=== PATIENT | male | born 2000 | race American Indian/Alaskan Native ===

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

== ENCOUNTER 2019-12-31 14:26 | Emergency (ER) | payer SELFPAY ==
[2019-12-31 15:09] VITALS: BP 114/60
[2019-12-31] MEDS ORDERED: IBUPROFEN 600 MG TAB PO ONE (15:13)
--- NOTE | 2019-12-31 15:13 | Emergency Department Report ---
ED Upper Extremity Inj HPI - General Chief Complaint: Fall Stated Complaint: LT WRIST PAIN Time Seen by Provider: 12/31/19 15:11 Source: patient Mode of arrival: Ambulatory Limitations: No Limitations - History of Present Illness Initial Comments: Patient is a 19-year-old male presents emergency room with complaints of left wrist pain that began yesterday. He states that he was skateboarding outside and fell to the ground and caught himself with his left arm. He states that he had a fall on outstretched hand. He states that the pain increased this morning when he woke up. He states he has sprained his wrist in the past but denies any fractures or surgeries. He denies any numbness or weakness. he denies hitting his head, LOC, vomiting, or any other injury. He states that he does have pain with movement. No past medical history. No allergies to medications. - Related Data Previous Rx's Medication Instructions Recorded Last Taken Type Chlorhexidine Mouthwash [Peridex] 15 ml MM BID #1 bottle 05/07/17 Unknown Rx traMADoL [Ultram] 50 mg PO Q6HR PRN #15 tablet 05/07/17 Unknown Rx Ibuprofen [Motrin 600 MG tab] 600 mg PO Q8H PRN #14 tablet 12/31/19 Unknown Rx Allergies Allergy/AdvReac Type Severity Reaction Status Date / Time No Known Allergies Allergy Verified 05/07/17 02:59 ED Review of Systems ROS: Stated complaint: LT WRIST PAIN Other details as noted in HPI Comment: All other systems reviewed and negative ED Past Medical Hx - Past Medical History Previous Medical History?: No - Surgical History Past Surgical History?: No - Social History Smoking Status: Never Smoker Substance Use Type: None - Medications Home Medications: Home Medications Medication Instructions Recorded Confirmed Last Taken Type Chlorhexidine Mouthwash [Peridex] 15 ml MM BID #1 bottle 05/07/17 Unknown Rx traMADoL [Ultram] 50 mg PO Q6HR PRN #15 tablet 05/07/17 Unknown Rx Ibuprofen [Motrin 600 MG tab] 600 mg PO Q8H PRN #14 tablet 12/31/19 Unknown Rx ED Physical Exam - General Limitations: No Limitations General appearance: alert, in no apparent distress - Head Head exam: Present: atraumatic, normocephalic - Eye Eye exam: Present: normal appearance - ENT ENT exam: Present: mucous membranes moist - Respiratory Respiratory exam: Absent: respiratory distress, accessory muscle use - Extremities Exam Extremities exam: Present: other (ttp to the middle and lateral distal wrist, no snuffbox ttp, no ttp to the left hand or digits, FROM of the left wrist, hand, digits, he has pain with flexion and extension of the left wrist, there is mild edema of the left wrist, neurovascularly intact) - Neurological Exam Neurological exam: Present: alert, oriented X3 - Psychiatric Psychiatric exam: Present: normal affect, normal mood - Skin Skin exam: Present: warm, dry, intact ED Course Vital Signs 12/31/19 15:07 Temperature 98.4 F Pulse Rate 68 Respiratory 20 Rate Blood Pressure 114/60 [Right] O2 Sat by Pulse 100 Oximetry ED Medical Decision Making - Radiology Data Radiology results: report reviewed, image reviewed Ordering Physician: BENIGNO NATH Date of Service: 12/31/19 Procedure(s): XR wrist 3+V LT Accession Number(s): [id number] cc: BENIGNO NATH Fluoro Time In Minutes: LEFT WRIST 3 VIEWS INDICATION / CLINICAL INFORMATION: Left wrist pain, status post fall on outstretched hand. COMPARISON: None available. FINDINGS: BONES and JOINT(S): No acute fracture or subluxation. No significant arthritis. SOFT TISSUES: No significant abnormality. ADDITIONAL FINDINGS: None. IMPRESSION: 1. No acute findings. Signer Name: Bill Salinas MD Signed: 12/31/2019 4:20 PM Workstation Name: [id number] Transcribed By: MN Dictated By: Bill Salinas MD Electronically Authenticated By: Bill Salinas MD Signed Date/Time: 12/31/191619 DD/ 18 TD/TT: - Medical Decision Making Patient is a 19-year-old male presents emergency room with complaints of left wrist pain that began yesterday. He states that he was skateboarding outside and fell to the ground and caught himself with his left arm. He states that he had a fall on outstretched hand. He states that the pain increased this morning when he woke up. He states he has sprained his wrist in the past but denies any fractures or surgeries. He denies any numbness or weakness. he denies hitting his head, LOC, vomiting, or any other injury. He states that he does cortez ve pain with movement. No past medical history. No allergies to medications. vitals are normal. on exam: ttp to the middle and lateral distal wrist, no snuffbox ttp, no ttp to the left hand or digits, FROM of the left wrist, hand, digits, he has pain with flexion and extension of the left wrist, there is mild edema of the left wrist, neurovascularly intact. XR left wrist: 1. No acute findings. Patient given ibuprofen while in the emergency department and symptoms improved. Patient placed in Velcro wrist splint by rn manager and remained neurovascular intact. Patient given prescription for ibuprofen. Advised patient to please take medication as prescribed as needed. May ice for 15 minutes at a time, rest, elevate the arm. Follow-up with orthopedic doctor for reexamination. Return to emergency room for any new or worsening symptoms. - Differential Diagnosis sprain, strain, fx, dislocation, contusion, tendinitis Critical care attestation.: If time is entered above; I have spent that time in minutes in the direct care of this critically ill patient, excluding procedure time. ED Disposition Clinical Impression: Left wrist sprain Qualifiers: Encounter type: initial encounter Qualified Code(s): S63.502A - Unspecified sprain of left wrist, initial encounter Disposition: TO HOME OR SELFCARE Is pt being admited?: No Does the pt Need Aspirin: No Condition: Stable Instructions: Wrist Sprain, Adult Additional Instructions: please take medication as prescribed as needed. May ice for 15 minutes at a time, rest, elevate the arm. Follow-up with orthopedic doctor for reexamination. Return to emergency room for any new or worsening symptoms. Prescriptions: Ibuprofen [Motrin 600 MG tab] 600 mg PO Q8H PRN #14 tablet PRN Reason: Pain Referrals: PRIMARY CAREMD [Primary Care Provider] - 2-3 Days MARY ROYAL MD [Staff Physician] - 2-3 Days [facility] [Provider Group] - 2-3 Days Time of Disposition: 16:34
--- NOTE | 2019-12-31 16:24 | XRay Report ---
LEFT WRIST 3 VIEWS INDICATION / CLINICAL INFORMATION: Left wrist pain, status post fall on outstretched hand. COMPARISON: None available. FINDINGS: BONES and JOINT(S): No acute fracture or subluxation. No significant arthritis. SOFT TISSUES: No significant abnormality. ADDITIONAL FINDINGS: None. IMPRESSION: 1. No acute findings. Signer Name: Bill Salinas MD Signed: 12/31/2019 4:20 PM Workstation Name: [id number]
== END 2019-12-31 16:50 | disposition home or self-care (01) ==
LOC: ED 14:26
DX: S63.502A Unspecified sprain of left wrist, initial encounter (principal); Z79.899 Other long term (current) drug therapy; V00.131A Fall from skateboard, initial encounter; Y92.410 Unspecified street and highway as the place of occurrence of the external cause; Y93.89 Activity, other specified; Y99.8 Other external cause status

== ENCOUNTER 2020-01-14 19:47 | Emergency (ER) | payer SELFPAY ==
[2020-01-14 20:15] VITALS: BP 115/68
--- NOTE | 2020-01-14 20:18 | Event Note ---
ED Screening Note ED Screening Note: Fall off a skateboard that occurred yesterday He landed on his right shoulder States that this morning when he woke up the pain was significantly worse He states he is unable to lift his right shoulder This initial assessment/diagnostic orders/clinical plan/treatment(s) is/are subject to change based on patients health status, clinical progression and re- assessment by fellow clinical providers in the ED. Further treatment and workup at subsequent clinical providers discretion. Patient/guardian urged not to elope from the ED as their condition may be serious if not clinically assessed and managed. Initial orders include: X-ray right shoulder
--- NOTE | 2020-01-14 20:50 | XRay Report ---
RIGHT SHOULDER 2 VIEWS INDICATION / CLINICAL INFORMATION: Right shoulder pain. COMPARISON: None available. FINDINGS: BONES / JOINT(S): The externally rotated view could not be performed due to pain. No significant arth ritis. There is no evidence of fracture, subluxation or destructive lesion. SOFT TISSUES: No significant abnormality. ADDITIONAL FINDINGS: The visualized right lung is clear. Signer Name: Antony Rivas MD Signed: 01/14/2020 8:46 PM Workstation Name: [id number]
[2020-01-15] MEDS ORDERED: IBUPROFEN 800 MG TAB PO ONE (00:31)
--- NOTE | 2020-01-15 00:38 | Emergency Department Report ---
ED Extremity Problem HPI - General Chief complaint: Extremity Injury, Upper Stated complaint: RIGHT SHOULDER PAIN Time Seen by Provider: 01/14/20 20:15 Source: patient Mode of arrival: Ambulatory Limitations: No Limitations - History of Present Illness Initial comments: Patient is a 19-year-old F [place] male with no significant past medical history who was skateboarding yesterday and fell during a trick onto his right shoulder. States the pain is 9 out of 10 and he has difficulty raising his right upper extremity. Denies hitting his head or any other injuries. Pain is worse with trying to move and better with rest. - Related Data Previous Rx's Medication Instructions Recorded Last Taken Type Chlorhexidine Mouthwash [Peridex] 15 ml MM BID #1 bottle 05/07/17 Unknown Rx traMADoL [Ultram] 50 mg PO Q6HR PRN #15 tablet 05/07/17 Unknown Rx Ibuprofen [Motrin 600 MG tab] 600 mg PO Q8H PRN #14 tablet 12/31/19 Unknown Rx Ketorolac [Toradol] 10 mg PO Q6H PRN #12 tablet 01/15/20 Unknown Rx methOCARBAMOL [Robaxin TAB] 500 mg PO Q6H PRN #14 tablet 01/15/20 Unknown Rx traMADoL [Ultram] 50 mg PO Q6HR PRN #12 tablet 01/15/20 Unknown Rx Allergies Allergy/AdvReac Type Severity Reaction Status Date / Time No Known Allergies Allergy Verified 05/07/17 02:59 ED Review of Systems ROS: Stated complaint: RIGHT SHOULDER PAIN Other details as noted in HPI Comment: All other systems reviewed and negative ED Past Medical Hx - Past Medical History Previous Medical History?: No - Social History Smoking Status: Never Smoker Substance Use Type: None - Medications Home Medications: Home Medications Medication Instructions Recorded Confirmed Last Taken Type Chlorhexidine Mouthwash [Peridex] 15 ml MM BID #1 bottle 05/07/17 Unknown Rx traMADoL [Ultram] 50 mg PO Q6HR PRN #15 tablet 05/07/17 Unknown Rx Ibuprofen [Motrin 600 MG tab] 600 mg PO Q8H PRN #14 tablet 12/31/19 Unknown Rx Ketorolac [Toradol] 10 mg PO Q6H PRN #12 tablet 01/15/20 Unknown Rx methOCARBAMOL [Robaxin TAB] 500 mg PO Q6H PRN #14 tablet 01/15/20 Unknown Rx traMADoL [Ultram] 50 mg PO Q6HR PRN #12 tablet 01/15/20 Unknown Rx ED Physical Exam - General Limitations: No Limitations General appearance: alert, in no apparent distress - Head Head exam: Present: atraumatic, normocephalic - Eye Eye exam: Present: normal appearance, PERRL, EOMI - ENT ENT exam: Present: mucous membranes moist - Neck Neck exam: Present: normal inspection - Respiratory Respiratory exam: Present: normal lung sounds bilaterally. Absent: respiratory distress, wheezes, rales, rhonchi, stridor - Cardiovascular Cardiovascular Exam: Present: regular rate, normal rhythm, normal heart sounds. Absent: systolic murmur, diastolic murmur, rubs, gallop - GI/Abdominal GI/Abdominal exam: Present: soft, normal bowel sounds. Absent: distended, tenderness, guarding - Rectal Rectal exam: Present: deferred - Extremities Exam Extremities exam: Present: normal inspection - Expanded Upper Extremity Exam Right Shoulder Exam: Present: normal inspection, tenderness. Absent: full ROM, swelling, abrasion, laceration, deformity, crepidus, dislocation, erythema - Back Exam Back exam: Present: normal inspection - Neurological Exam Neurological exam: Present: alert, oriented X3 - Psychiatric Psychiatric exam: Present: normal affect, normal mood - Skin Skin exam: Present: warm, dry, intact, normal color. Absent: rash ED Course Vital Signs 01/14/20 20:13 Temperature 98.0 F Pulse Rate 56 L Respiratory 17 Rate Blood Pressure 115/68 O2 Sat by Pulse 97 Oximetry ED Medical Decision Making - Radiology Data [facility] [address] [place] [address] XRay Report Signed Patient: MICHELE RAMOS MR#: [id number] : 2000 Acct:[id number] Age/Sex: 19 / M ADM Date: 01/14/20 Loc: ED Attending Dr: Ordering Physician: BENIGNO NATH Date of Service: 01/14/20 Procedure(s): XR shoulder 2+V RT Accession Number(s): [id number] cc: BENIGNO NATH Fluoro Time In Minutes: RIGHT SHOULDER 2 VIEWS INDICATION / CLINICAL INFORMATION: Right shoulder pain. COMPARISON: None available. FINDINGS: BONES / JOINT(S): The externally rotated view could not be performed due to pain. No significant arthritis. There is no evidence of fracture, subluxation or destructive lesion. SOFT TISSUES: No significant abnormality. ADDITIONAL FINDINGS: The visualized right lung is clear. Signer Name: Antony Rivas MD Signed: 01/14/2020 8:46 PM Workstation Name: [id number] - Medical Decision Making Patient had difficulty raising his shoulder secondary to pain. Was able to actively move his shoulder approximately 20 to 30 degrees before the patient resisted secondary to pain. Patient likely with injury to the rotator cuff. There is no dislocation and no pain over the AC joint. Patient placed in sling and will be given medication for symptomatic relief. Patient given instructions on aggressive ice therapy. Patient also to follow-up with orthopedics within t he next week if his symptoms not improved. Critical care attestation.: If time is entered above; I have spent that time in minutes in the direct care of this critically ill patient, excluding procedure time. ED Disposition Clinical Impression: Injury of right rotator cuff Disposition: - TO HOME OR SELFCARE Is pt being admited?: No Does the pt Need Aspirin: No Condition: Stable Instructions: Shoulder Pain, Shoulder Exercises-SportsMed, RICE Therapy for Routine Care of Injuries, [id number] Referrals: ANTONY ROYAL MD [Staff Physician] - 3-5 Days Time of Disposition: 00:38
== END 2020-01-15 01:05 | disposition home or self-care (01) ==
LOC: ED 19:47
DX: S46.091A Other injury of muscle(s) and tendon(s) of the rotator cuff of right shoulder, initial encounter (principal); X58.XXXA Exposure to other specified factors, initial encounter; Y93.89 Activity, other specified; Y92.89 Other specified places as the place of occurrence of the external cause; Y99.8 Other external cause status
CPT/HCPCS: 99283